=== PATIENT | male | born 1960 | race Caucasian/White ===

== ENCOUNTER 2018-02-10 17:03 | Inpatient (IN) | payer BC ==
--- NOTE | 2018-02-10 17:48 | ED ---
General Adult HPI - General Chief complaint: Recheck/Abnormal Lab/Rx Stated complaint: blood clot Time Seen by Provider: 02/10/18 17:22 Source: patient, RN notes reviewed Mode of arrival: ambulatory Limitations: no limitations - History of Present Illness Initial comments: Patient is a pleasant 58-year-old male presenting to the emergency department with concerning findings on his CAT scan. Patient had a routine computed tomography scan of his chest done on 02/02/2018. This was to assess history of previous granulomatous. On this CAT scan there was shown concern for possible filling defect superior vena cava. Cannot exclude blood clot. Radiologist also makes mention that this finding was also present on prior computed tomography scan. Patient is symptom-free and has no complaints. Patient denies any chest pain or dyspnea. No neck pain or neck swelling. Dr. Argueta did call prior to arrival to updated regarding patient. - Related Data Home Medications Medication Instructions Recorded Confirmed Acetaminophen Tab [Tylenol Tab] 650 mg PO BID PRN 02/10/18 02/10/18 Allergies Allergy/AdvReac Type Severity Reaction Status Date / Time No Known Allergies Allergy Verified 02/10/18 17:43 Review of Systems ROS Statement: Those systems with pertinent positive or pertinent negative responses have been documented in the HPI. ROS Other: All systems not noted in ROS Statement are negative. Constitutional: Denies: fever Eyes: Denies: eye pain ENT: Denies: ear pain Respiratory: Denies: cough, dyspnea Cardiovascular: Denies: chest pain Endocrine: Denies: fatigue Gastrointestinal: Denies: abdominal pain Genitourinary: Denies: dysuria Musculoskeletal: Denies: back pain Skin: Denies: rash Neurological: Denies: weakness Past Medical History Past Medical History: No Reported History History of Any Multi-Drug Resistant Organisms: None Reported Past Surgical History: Tonsillectomy Past Psychological History: No Psychological Hx Reported Smoking Status: Former smoker Past Alcohol Use History: Heavy Past Drug Use History: None Reported General Exam Limitations: no limitations General appearance: alert, in no apparent distress Head exam: Present: atraumatic Eye exam: Present: normal appearance, PERRL ENT exam: Present: normal oropharynx Neck exam: Present: normal inspection, full ROM. Absent: tenderness, meningismus, lymphadenopathy, thyromegaly Respiratory exam: Present: normal lung sounds bilaterally Cardiovascular Exam: Present: regular rate, normal rhythm Expanded Peripheral pulses: 2+: Radial (R), Radial (L) GI/Abdominal exam: Present: soft. Absent: tenderness Extremities exam: Present: normal inspection. Absent: pedal edema, calf tenderness Neurological exam: Present: alert Psychiatric exam: Present: normal affect, normal mood Skin exam: Present: normal color Course Vital Signs 02/10/18 17:15 Temperature 98.2 F Pulse Rate 81 Respiratory 16 Rate Blood Pressure 160/93 O2 Sat by Pulse 99 Oximetry Medical Decision Making - Medical Decision Making Case was discussed in detail with Dr. Mesa who was not convinced CTA would provide more information. He does recommend medical admission with cardiothoracic consult and hematology consult. He states heparin can be considered at this time. Case was also discussed in detail with Dr. Kilgore, who will admit covered for Dr. Argueta. Disposition Clinical Impression: Superior vena cava thrombosis Disposition: ADMITTED IP TO THIS HOSP Is patient prescribed a controlled substance at d/c from ED?: No Referrals: Janette Argueta MD [Primary Care Provider] - 1-2 days Decision Time: 18:33
[2018-02-10] MEDS ORDERED: NALOXONE 0.4 MG/ML 1 ML VIAL IV PRN (18:33)
[2018-02-10] MEDS ORDERED: HEPARIN SODIUM,PORCINE 10,000 UNIT/ML 1 ML VIAL IV ONE (18:33)
[2018-02-10] MEDS ORDERED: HEPARIN SODIUM,PORCINE 5,000 UNIT/ML 1 ML VIAL IV PRN (18:33)
[2018-02-10] MEDS ORDERED: HEPARIN SOD,PORK IN 0.45% NACL 25,000 UNIT in 0.45% NACL 1 250ML.BAG IV SCH (18:45)
[2018-02-10] MEDS ORDERED: SODIUM CHLORIDE 0.9% 1,000 ML IV SCH (18:45)
[2018-02-10 18:57] LABS: Basophils # (A) 0.1 k/uL (0-0.2); Basophils % (A) 1 %; Eosinophils # (A) 0.3 k/uL (0-0.7); Eosinophils % (A) 4 %; HCT 42.8 % (39.0-53.0); HGB 13.7 gm/dL (13.0-17.5); Lymphocytes # (A) 1.2 k/uL (1.0-4.8); Lymphocytes % (A) 16 %; MCH 29.4 pg (25.0-35.0); MCHC 32.1 g/dL (31.0-37.0); MCV 91.6 fL (80.0-100.0); Mean Platelet Volume 6.6; Monocytes # (A) 0.4 k/uL (0-1.0); Monocytes % (A) 5 %; Neutrophils # (A) 5.2 k/uL (1.3-7.7); Neutrophils % (A) 72 %; Platelet Count 249 k/uL (150-450); RBC 4.67 m/uL (4.30-5.90); RDW 13.1 % (11.5-15.5); WBC 7.3 k/uL (3.8-10.6)
[2018-02-10 19:04] LABS: Creatine Kinase 273 U/L (55-170)
[2018-02-10 19:05] LABS: INR 0.9 (<1.2); Partial Thromboplastin Time 24.8 sec (22.0-30.0); Prothrombin Time 9.5 sec (9.0-12.0)
[2018-02-10 19:06] LABS: ALT 32 U/L (21-72); AST 28 U/L (17-59); Albumin 4.6 g/dL (3.5-5.0); Alkaline Phosphatase 50 U/L (38-126); Anion Gap 10 mmol/L; Blood Urea Nitrogen 22 mg/dL (9-20); Carbon Dioxide 23 mmol/L (22-30); Chloride 106 mmol/L (98-107); Glucose 102 mg/dL (74-99); Magnesium 2.2 mg/dL (1.6-2.3); Potassium 4.3 mmol/L (3.5-5.1); Sodium 139 mmol/L (137-145); Total Bilirubin 0.3 mg/dL (0.2-1.3); Total Protein 7.7 g/dL (6.3-8.2)
[2018-02-10 19:16] LABS: Creatine Kinase MB 1.7 ng/mL (0.0-2.4); Troponin I <0.012 ng/mL (0.000-0.034)
[2018-02-11 01:32] LABS: Glucose,Whole Blood 95 mg/dL (75-99)
[2018-02-11 05:11] LABS: Basophils # (A) 0.1 k/uL (0-0.2); Basophils % (A) 1 %; Eosinophils # (A) 0.4 k/uL (0-0.7); Eosinophils % (A) 7 %; HCT 40.8 % (39.0-53.0); Lymphocytes # (A) 1.4 k/uL (1.0-4.8); Lymphocytes % (A) 25 %; MCH 29.5 pg (25.0-35.0); MCHC 31.8 g/dL (31.0-37.0); MCV 92.7 fL (80.0-100.0); Mean Platelet Volume 6.6; Monocytes # (A) 0.4 k/uL (0-1.0); Monocytes % (A) 7 %; Neutrophils # (A) 3.2 k/uL (1.3-7.7); Neutrophils % (A) 58 %; Platelet Count 199 k/uL (150-450); RDW 13.3 % (11.5-15.5); WBC 5.6 k/uL (3.8-10.6)
[2018-02-11 05:23] LABS: ALT 37 U/L (21-72); AST 24 U/L (17-59); Albumin 3.8 g/dL (3.5-5.0); Alkaline Phosphatase 40 U/L (38-126); Anion Gap 7 mmol/L; Blood Urea Nitrogen 17 mg/dL (9-20); Calcium 9.5 mg/dL (8.4-10.2); Carbon Dioxide 26 mmol/L (22-30); Chloride 106 mmol/L (98-107); Glucose 87 mg/dL (74-99); Magnesium 2.2 mg/dL (1.6-2.3); Phosphorus 3.8 mg/dL (2.5-4.5); Potassium 4.2 mmol/L (3.5-5.1); Sodium 139 mmol/L (137-145); Total Bilirubin 0.4 mg/dL (0.2-1.3); Total Protein 6.7 g/dL (6.3-8.2)
[2018-02-11 08:56] VITALS: RESP 16
--- NOTE | 2018-02-11 10:19 | P.HPIM ---
History of Present Illness H&P Date: 02/11/18 Chief Complaint: Suspicious superior vena cava thrombus This is a 58-year-old male patient of Dr. Argueta. Patient presented from his primary care provider after CT was completed at [facility] on 02/02 showing suspicion for superior vena cava thrombus. Patient states he was actually concerned because he leading to fly on Thursday to [facility]. Patient states he got the CT as a routine follow-up for pneumonia that he had possibly 10 years ago in which he now receives routine chest x-rays and CTs. On the computed tomography scan there was concern for possible filling defect of the superior Vena cava cannot exclude blood clot. Patient has no concerning symptoms or complaints. Patient denies any chest pain or shortness of breath. Patient has no significant health history. Patient does report he used to be smoker but quit over [address] Radford per cardiothoracic team has been consulted along with hematology services. Patient has been started on heparin drip. EKG completed showing sinus rhythm with sinus arrhythmia possible left arterial enlargement left ventricular hypertrophy. 2-D echo has been completed results pending. Dr. Mesa for vascular surgery also consulted. Review of Systems Please refer to HPI otherwise unremarkable Past Medical History Past Medical History: Pneumonia Additional Past Medical History / Comment(s): 02-10-18 pt wants a pne vaccine while here. other hx includes"past gout, "scarring on lungs from past pne", nasal polpys tx w/ steroids, "water on the knee a a month ago" History of Any Multi-Drug Resistant Organisms: None Reported Past Surgical History: Tonsillectomy Additional Past Surgical History / Comment(s): dental implant Past Anesthesia/Blood Transfusion Reactions: No Reported Reaction Additional Past Anesthesia/Blood Transfusion Reaction / Comment(s): "has never received any blood" Smoking Status: Former smoker - Past Family History Mother Family Medical History: Hypertension Father Family Medical History: Cancer, Diabetes Mellitus, Prostate Disorder Additional Family Medical History / Comment(s): prostate cancer Medications and Allergies Home Medications Medication Instructions Recorded Confirmed Type Acetaminophen Tab [Tylenol Tab] 650 mg PO BID PRN 02/10/18 02/10/18 History Allergies Allergy/AdvReac Type Severity Reaction Status Date / Time No Known Allergies Allergy Verified 02/10/18 17:43 Physical Exam Vitals: Vital Signs Temp Pulse Pulse Resp BP BP Pulse Ox 02/11/18 08:00 98 F 70 16 132/93 98 02/11/18 04:00 97.8 F 61 17 122/82 02/11/18 00:00 98.4 F 70 68 16 126/87 131/86 97 02/10/18 23:00 63 17 145/94 94 L 02/10/18 22:01 68 18 131/94 96 02/10/18 21:00 64 14 136/98 96 02/10/18 20:00 65 17 148/98 96 02/10/18 19:52 97.4 F L 67 16 148/98 97 02/10/18 19:00 70 11 L 150/104 02/10/18 18:23 28 H 02/10/18 17:15 98.2 F 81 16 160/93 99 Intake and Output 02/10/18 02/11/18 02/11/18 22:59 06:59 14:59 Intake Total 142.585 Output Total 0 Balance 142.585 Intake: Intake, IV Titration 142.585 Amount Heparin Sod,Pork in 0.45% 102.585 NaCl 25,000 unit In 0.45 % NaCl 1 250ml.bag @ 18 UNITS/KG/HR 14.69 mls/hr IV .Q17H2M ARCELIA Rx#: [id number] Sodium Chloride 0.9% 1, 40 000 ml @ 20 mls/hr IV . Q24H ARCELIA Rx#:[id number] Output: Urine 0 Other: Voiding Method Toilet Urinal Weight 81.647 kg 81.85 kg Head normocephalic Neck supple Lungs clear to auscultation bilaterally no wheezing or crackles Heart regular rate and rhythm S1-S2, no rub or gallop Abdomen is soft nontender nondistended positive bowel sounds no hepatosplenomegaly Extremities no edema Neuro alert and orientated to 3 Results CBC & Chem 7: 02/11/18 04:32 02/11/18 04:32 Labs: Abnormal Lab Results - Last 24 Hours (Table) 02/10/18 02/10/18 02/11/18 Range/Units 18:17 18:17 01:12 APTT 114.5 H* (22.0-30.0) sec BUN 22 H (9-20) mg/dL Glucose 102 H (74-99) mg/dL Total Creatine Kinase 273 H (55-170) U/L 02/11/18 Range/Units 08:01 APTT 57.0 H (22.0-30.0) sec BUN (9-20) mg/dL Glucose (74-99) mg/dL Total Creatine Kinase (55-170) U/L Thrombosis Risk Factor Assmnt - Choose All That Apply Any of the Below Risk Factors Present?: Yes Each Factor Represents 1 point: Age 41-60 years Thrombosis Risk Factor Assessment Total Risk Factor Score: 1 Thrombosis Risk Factor Assessment Level: Low Risk Assessment and Plan Assessment: 1. Rule out superior vena cava thrombus. Patient had recent CT done at [facility] on 02/02/2018 which showed possible filling defect in the superior vena cava. Cannot exclude blood clot. Patient does have CT scans at bedside. Dr. Radford per cardiothoracic surgery consulted. CAT reviewed per cardiothoracic team. Dr. Mesa consulted for vascular surgery. Dr. bazan consulted for hematology. 2-D echo ordered. currently on heparin drip 2. History of pneumonia. Patient states he now gets routine CT scans and chest x-rays since having pneumonia proximally 10 years prior 3. Ex-smoker. Patient states he quit over 20 years ago Time with Patient: Greater than 30 (Greater than 60% of the total time spent in counseling and coordination of care. I performed an examination of the patient and discussed their management with the Nurse Practitioner. I have reviewed the Nurse Practitioner's notes and agree with the documented findings and plan of care)
--- NOTE | 2018-02-11 11:52 | ECHOF ---
Referral Reason:Evaluate for superior vena cava thrombus MEASUREMENTS -------- HEIGHT: 180.3 cm WEIGHT: 81.6 kg BP: 122/80 IVSd: 0.8 cm (0.6 - 1.1) LVIDd: 3.6 cm (3.9 - 5.3) LVPWd: 1.2 cm (0.6 - 1.1) IVSs: 1.8 cm LVIDs: 1.6 cm LVPWs: 1.6 cm LAESV Index (A-L): 21.91 ml/m Ao Diam: 3.1 cm (2.0 - 3.7) AV Cusp: 2.0 cm (1.5 - 2.6) LA Diam: 3.9 cm (2.7 - 3.8) MV EXCURSION: 22.213 mm (> 18.000) MV EF SLOPE: 168 mm/s (70 - 150) EPSS: 2.0 cm MV E Vic: 0.96 m/s MV DecT: 142 ms MV A Vic: 0.92 m/s MV E/A Ratio: 1.04 RAP: 5.00 mmHg RVSP: 20.51 mmHg FINDINGS -------- Sinus rhythm. This was a technically good study. The left ventricular size is normal. There is borderline concentric left ventricular hypertrophy. Overall left ventricular systolic function is normal with, an EF between 55 - 60 %. The right ventricle is normal in size and function. The left atrium is normal in size. The right atrium is normal in size. The aortic valve is trileaflet, and appears structurally normal. No aortic stenosis or regurgitation. The mitral valve leaflets are mildly thickened. Mild mitral annular calcification present. There is trace mitral regurgitation. Trace tricuspid regurgitation present. The right ventricular systolic pressure, as measured by Dopp ler, is 20.51mmHg. Pulmonic valve appears structurally normal. The aortic root size is normal. Normal inferior vena cava with normal inspiratory collapse consistent with estimated right atrial pre ssure of 5 mmHg. The pericardium is normal. CONCLUSIONS -------- 1. Sinus rhythm. 2. This was a technically good study. 3. The left ventricular size is normal. 4. There is borderline concentric left ventricular hypertrophy. 5. Overall left ventricular systolic function is normal with, an EF between 55 - 60 %. 6. The right ventricle is normal in size and function. 7. The left atrium is normal in size. 8. The right atrium is normal in size. 9. The aortic valve is trileaflet, and appears structurally normal. No aortic stenosis or regurgitati on. 10. The mitral valve leaflets are mildly thickened. 11. Mild mitral annular calcification present. 12. There is trace mitral regurgitation. 13. Trace tricuspid regurgitation present. 14. The right ventricular systolic pressure, as measured by Doppler, is 20.51mmHg. 15. Pulmonic valve appears structurally normal. 16. The aortic root size is normal. 17. Normal inferior vena cava with normal inspiratory collapse consistent with estimated right atrial pressure of 5 mmHg. 18. The pericardium is normal. MANAGER MATERIALS MANAGEMENT: Jazmine Davenport RDCS
[2018-02-11 12:51] VITALS: BP 147/89; PULSE 83; TEMP 97.8
--- NOTE | 2018-02-11 14:56 | P.DS ---
Providers Date of admission: 02/10/18 18:33 Expected date of discharge: 02/11/18 Attending physician: Stephen Kilgore Consults: 02/10/18 18:34 Consult Physician Urgent Consulting Provider: Selena Radford Consult Reason/Comments: Evaluate for possible superior vena cava thrombus Do you want consulting provider notified?: Yes Primary care physician: Janette Argueta [facility] Course: Discharge diagnosis 1. Rule out superior vena cava thrombus. Patient had recent CT done at [facility] on 02/02/2018 which showed possible filling defect in the superior vena cava. Cannot exclude blood clot. Patient does have CT scans at bedside. Dr. Radford per cardiothoracic surgery consulted. CAT reviewed per cardiothoracic team. Discussed case with cardiothoracic team does not clot is present in superior vena cava. Okay to DC heparin no need for Dr. Mesa or Dr. orellana consult. Patient has been cleared for discharge from cardiothoracic surgery 2. History of pneumonia. Patient states he now gets routine CT scans and chest x-rays since having pneumonia proximally 10 years ago. 3. Ex-smoker. Patient states he quit over 20 years ago Hospital Course This is a 58-year-old male patient of Dr. Argueta. Patient presented from his primary care provider after CT was completed at [facility] on 02/02 showing suspicion for superior vena cava thrombus. Patient states he was actually concerned because he leading to fly on Thursday to [facility]. Patient states he got the CT as a routine follow-up for pneumonia that he had possibly 10 years ago in which he now receives routine chest x-rays and CTs. On the computed tomography scan there was concern for possible filling defect of the superior Vena cava cannot exclude blood clot. Patient has no concerning symptoms or complaints. Patient denies any chest pain or shortness of breath. Patient has no significant health history. Patient does report he used to be smoker but quit over [address] Radford per cardiothoracic team has been consulted along with hematology services. Patient has been started on heparin drip. EKG completed showing sinus rhythm with sinus arrhythmia possible left arterial enlargement left ventricular hypertrophy. 2-D echo has been completed results pending. Dr. Mesa for vascular surgery also consulted. Discussed case with cardiothoracic surgery. Computed tomography scan reviewed and discussed. Per cardiothoracic surgery does not believe that there is a thrombus in the superior vena cava. Patient can be DC'd home per cardiothoracic surgery. I performed an examination of the patient and discussed their management with the Nurse Practitioner. I have reviewed the Nurse Practitioner's notes and agree with the documented findings and plan of care Patient Condition at Discharge: Stable Plan - Discharge Summary Discharge Rx Participant: No New Discharge Prescriptions: New Aspirin 81 mg PO DAILY #30 chewable Continue Acetaminophen Tab [Tylenol] 650 mg PO BID PRN PRN Reason: Pain Discharge Medication List Acetaminophen Tab [Tylenol] 650 mg PO BID PRN 02/10/18 [History] Aspirin 81 mg PO DAILY #30 chewable 02/11/18 [Rx] Follow up Appointment(s)/Referral(s): Janette Argueta MD [Primary Care Provider] - 1-2 days Activity/Diet/Wound Care/Special Instructions: Activity as tolerated diet Regular Discharge Disposition: HOME SELF-CARE
--- NOTE | 2018-02-11 15:13 | P.GSCN ---
History of Present Illness Consult date: 02/11/18 Reason for Consult: Possible superior vena cava thrombus, surgical recommendations Requesting physician: Jordan Brewster History of present illness: This is a 58-year-old active male who follows with Dr. Tushar Argueta on an outpatient basis. He has a previous medical history of pneumonia with subsequent scarring of the lungs, gout, and previous tobacco dependence. He presented to [facility] emergency room at the recommendation of his primary care provider after a computed tomography scan completed at [facility] on 02/02/2018 showed concern for superior vena cava thrombus. Apparently this gentleman obtains routine chest x-rays and CTs as follow-up for the pneumonia he had 10 years ago. Specifically, the computed tomography scan demonstrated concern for possible filling defect of the superior vena cava which could not rule out a blood clot. The patient had no presenting symptoms of any kind, and has been completely asymptomatic. Of note the same filling defect was seen on prior CT from 2015. Dr. Radford from cardiothoracic surgery was consulted due to documentation of possible superior vena cava thrombus. Review of Systems Review of systems was completely negative. Past Medical History Past Medical History: Pneumonia Additional Past Medical History / Comment(s): 02-10-18 pt wants a pne vaccine while here. other hx includes"past gout, "scarring on lungs from past pne", nasal polpys tx w/ steroids, "water on the knee a a month ago" History of Any Multi-Drug Resistant Organisms: None Reported Past Surgical History: Tonsillectomy Additional Past Surgical History / Comment(s): dental implant Past Anesthesia/Blood Transfusion Reactions: No Reported Reaction Additional Past Anesthesia/Blood Transfusion Reaction / Comm: "has never received any blood" Past Psychological History: No Psychological Hx Reported Smoking Status: Former smoker Past Alcohol Use History: None Reported Past Drug Use History: None Reported - Past Family History Mother Family Medical History: Hypertension Father Family Medical History: Cancer, Diabetes Mellitus, Prostate Disorder Additional Family Medical History / Comment(s): prostate cancer Medications and Allergies Home Medications Medication Instructions Recorded Confirmed Type Acetaminophen Tab [Tylenol] 650 mg PO BID PRN 02/10/18 02/10/18 History Aspirin 81 mg PO DAILY #30 chewable 02/11/18 Rx Allergies Allergy/AdvReac Type Severity Reaction Status Date / Time No Known Allergies Allergy Verified 02/10/18 17:43 Surgical - Exam Vital Signs Temp Pulse Resp BP Pulse Ox 98.2 F 81 16 160/93 99 02/10/18 17:15 02/10/18 17:15 02/10/18 17:15 02/10/18 17:15 02/10/18 17:15 - General well developed, well nourished, no distress, no pain - Eyes PERRL, normal ocular movement - ENT no hearing loss - Neck no masses, no bruits, trachea midline - Respiratory normal expansion, normal respiratory effort, clear to auscultation - Cardiovascular Rhythm: regular Heart Sounds: normal: S1, S2 - Abdomen Abdomen: soft, non tender, bowel sounds - Genitourinary Deferred - Rectum Deferred - Integumentary no rash, no growths, no abnormal pigmentation - Neurologic normal coordination, normal sensation - Musculoskeletal normal gait, normal posture - Psychiatric oriented to time, oriented to person, oriented to place, speech is normal, memory intact Results - Labs 02/11/18 04:32 02/11/18 04:32 Abnormal Lab Results - Last 24 Hours (Table) 02/10/18 02/10/18 02/11/18 Range/Units 18:17 18:17 01:12 APTT 114.5 H* (22.0-30.0) sec BUN 22 H (9-20) mg/dL Glucose 102 H (74-99) mg/dL Total Creatine Kinase 273 H (55-170) U/L 02/11/18 Range/Units 08:01 APTT 57.0 H (22.0-30.0) sec BUN (9-20) mg/dL Glucose (74-99) mg/dL Total Creatine Kinase (55-170) U/L Diabetes panel 02/10/18 02/11/18 Range/Units 18:17 04:32 Sodium 139 139 (137-145) mmol/L Potassium 4.3 4.2 (3.5-5.1) mmol/L Chloride 106 106 (98-107) mmol/L Carbon Dioxide 23 26 (22-30) mmol/L BUN 22 H 17 (9-20) mg/dL Creatinine 1.04 0.99 (0.66-1.25) mg/dL Glucose 102 H 87 (74-99) mg/dL Calcium 10.0 9.5 (8.4-10.2) mg/dL AST 28 24 (17-59) U/L ALT 32 37 (21-72) U/L Alkaline Phosphatase 50 40 (38-126) U/L Total Protein 7.7 6.7 (6.3-8.2) g/dL Albumin 4.6 3.8 (3.5-5.0) g/dL Calcium panel 02/10/18 02/11/18 Range/Units 18:17 04:32 Calcium 10.0 9.5 (8.4-10.2) mg/dL Phosphorus 3.8 (2.5-4.5) mg/dL Albumin 4.6 3.8 (3.5-5.0) g/dL Pituitary panel 02/10/18 02/11/18 Range/Units 18:17 04:32 Sodium 139 139 (137-145) mmol/L Potassium 4.3 4.2 (3.5-5.1) mmol/L Chloride 106 106 (98-107) mmol/L Carbon Dioxide 23 26 (22-30) mmol/L BUN 22 H 17 (9-20) mg/dL Creatinine 1.04 0.99 (0.66-1.25) mg/dL Glucose 102 H 87 (74-99) mg/dL Calcium 10.0 9.5 (8.4-10.2) mg/dL Adrenal panel 02/10/18 02/11/18 Range/Units 18:17 04:32 Sodium 139 139 (137-145) mmol/L Potassium 4.3 4.2 (3.5-5.1) mmol/L Chloride 106 106 (98-107) mmol/L Carbon Dioxide 23 26 (22-30) mmol/L BUN 22 H 17 (9-20) mg/dL Creatinine 1.04 0.99 (0.66-1.25) mg/dL Glucose 102 H 87 (74-99) mg/dL Calcium 10.0 9.5 (8.4-10.2) mg/dL Total Bilirubin 0.3 0.4 (0.2-1.3) mg/dL AST 28 24 (17-59) U/L ALT 32 37 (21-72) U/L Alkaline Phosphatase 50 40 (38-126) U/L Total Protein 7.7 6.7 (6.3-8.2) g/dL Albumin 4.6 3.8 (3.5-5.0) g/dL - Imaging CT scan - chest: report reviewed, image reviewed EKG: image reviewed Assessment and Plan (1) Superior vena cava thrombosis Current Visit: Yes Status: Suspected Code(s): I82.210 - ACUTE EMBOLISM AND THROMBOSIS OF SUPERIOR VENA CAVA SNOMED Code(s): 608827866 Plan: The patient was seen and examined at the bedside with Dr. Radford. Chart/ diagnostics were reviewed including review of CT scans at [facility]. At this time we believe that we are seeing on the computed tomography scan is blood without dye coming from the contralateral side causing the appearance of blood clot when in fact one does not exist. The patient is completely asymptomatic. No surgical intervention is warranted at this time. Medical management per primary care service. We recommend discharge to home. Thank you for this consult. Please call us with any further questions. Time with Patient: Greater than 30
== END 2018-02-11 15:52 | disposition home or self-care (01) | DRG 301 ==
LOC: EC 17:03 → 3SCARD 18:33 → 2SICU 02-11 00:39
PROVIDERS: ADMIT Internal Medicine; ATTEND Internal Medicine
DX: I82.210 Acute embolism and thrombosis of superior vena cava (principal); Z79.82 Long term (current) use of aspirin; Z80.42 Family history of malignant neoplasm of prostate; Z82.49 Family history of ischemic heart disease and other diseases of the circulatory system; Z83.3 Family history of diabetes mellitus; Z87.01 Personal history of pneumonia (recurrent); Z87.891 Personal history of nicotine dependence
CPT/HCPCS: 80053; 82550; 82553; 83735; 84100; 84484; 85025; 85610; 85730; 93005; 93306; 96365; 96366; 96376; 99285